=== PATIENT | male | born 1945 | race African-American/Black ===

== ENCOUNTER 2019-05-11 13:13 | Emergency (ER) | payer OTHER ==
[~2019-05-11] VITALS: Ht 185.4 cm; Wt 96.0 kg
[2019-05-11 15:55] LABS: BASOPHILS % 0.7 % (0.0-2.0); CHLORIDE 107 mEq/L (98-107); EOSINOPHILS % 2.3 % (0.0-5.0); HEMATOCRIT. 45.8 % (42.0-52.0); LYMPHOCYTES % 22.5 % (20.0-50.0); MEAN CORPUSCULAR HEMOGLOBIN 27.8 pg (28.0-32.0); MEAN CORPUSCULAR VOLUME 84.7 fL (80.0-94.0); MEAN PLATELET VOLUME 8.5 fl (7.4-10.4); MONOCYTES % 9.3 % (2.0-8.0); NEUTROPHILS % 65.2 % (40.0-76.0); PLATELET 210 x1000/uL (130-400); RED BLOOD CELL COUNT 5.41 mill/uL (4.7-6.1); RED CELL DISTRIBUTION WIDTH 15.2 % (11.6-14.6)
[2019-05-11 17:47] VITALS: BP 148/90
== END 2019-05-11 17:47 | disposition home or self-care (01) ==
LOC: ER 13:46
DX: R42 Dizziness and giddiness (principal); R51 Headache; I10 Essential (primary) hypertension; I49.9 Cardiac arrhythmia, unspecified
CPT/HCPCS: 36415; 83880; 84484; 93005; 99284